=== PATIENT | female | born 1955 | race Caucasian/White ===

== ENCOUNTER 2022-01-04 09:08 | Outpatient (CLI) | payer MEDICARE, OTHER, SELFPAY ==
--- OUTSIDE RECORDS SUMMARY | 2022-01-04 09:11 | XMS_ITS | Encounter Summary ---
:1955 Author Organization [facility] Address [address] [place] [address] Care Team Providers Name Role Phone Unavailable Primary Care Provider Unavailable Reason for Visit Procedure/Equipment (Routine) - Incomplete Specialty Diagnoses / Procedures Referred By Contact Refer red To Contact Diagnoses Capsulitis of metatarsophalangeal (MTP) joint of left foot Moreno Montejo DPM [place] [address] [address] Referral ID Status Reason Start Date Expiration Date Visits V isits Requested Authorized [id number] Incomplete 12/05/2021 03/06/2023 1 1 Encounter Details Date Type Department Care Team Description 12/15/2021 Ancillary [facility] Moreno Montejo Capsulitis of Procedure [address] [facility] ELENA Hernandez metatarsophalangeal (MTP) Drive [address] [address] joint [place] [address] APRIL [place] [phone] [id number] Social History Tobacco Use Types Packs/Day Years Used Date Smoking Tobacco: Never Assessed Sex Assigned at Date Recorded Not on file documented as of this encounter Plan of Treatment Upcoming Encounters Date Type Specialty Care Team Description 01/11/2022 Appointment Podiatry Moreno Montejo DPM [address] [place] [address] (Wo rk) documented as of this encounter Procedures Procedure Name Priority Date/Time Associated Diagnosis Comme nts FL ARTHROGRAM Routine 12/15/2021 7:47 Capsulitis of Results fo r this SECOND METATARSAL AM CDT metatarsophalangeal (MT P) procedure are in LT joint of left foot the resul ts section. documented in this encounter Results FL Arthrogram Second Metatarsal Lt (12/15/2021 7:47 AM CDT) Anatomical Region Laterality Modality Lower Extremity, Foot Radiographic Imagi ng Specimen (Source) Anatomical Collection Method Collection Time Re ceived Time Location / / Volume Laterality 12/15/2021 7:07 AM CDT Impressions 12/15/2021 10:09 AM CDT FINDINGS: The procedure, goals, risks and benefits of the procedure were discussed with the patient, who gave full written and verbal consent to proceed. The location of the procedure was confirmed, the skin initialed, and pause for cause per formed. Using sterile technique, local anesthesia and fluoroscopic guidance a 25 gauge needle was advanced into the second MTP joint from a dorsal approach. Intra articular location of the needle tip was confirmed with the injection of 0.3 mL of Isovue. 1.5 mL of Gadavist injected into the joint space. No evidence of plantar capsular tear of the second MTP. Procedure Note Delvis Ureña MD - 12/15/2021For matting of this note might be different from the original. IMPRESSION FINDINGS: The procedure, goals, risks an d benefits of the procedure were discussed with the patient, who gave full written and verbal consent to proceed. The location of the procedure was confirmed, the skin initialed, and pause for cause performed. Using jered rile technique, local anesthesia and fluoroscopic guidance a 25 gauge needle was advanced into the second MTP joint from a dorsal approach. Intraarticular location of the needle tip was confirmed with the injection of 0.3 mL of Isovue. 1.5 mL of Gadavist injected into the joint space. No evidence of plantar capsular tear of the second MTP. Moreno Montejo DPM RAD FL documented in this encounter Visit Diagnoses Diagnosis Capsulitis of metatarsophalangeal (MTP) joint of left foot documented in this encounter Administered Medications Inactive Administered Medications - up to 3 most recent administrations Medication Order MAR Action Action Date Dose Rate Site gadobutrol (GADAVIST) 1 MMOL/ML Given 12/15/2021 7:08 AM CDT 2 m L injection 2 mL 2 mL, Intracapsular, ONCE, On [place] 12/15/21 at 0730, For 1 dose documented in this encounter
--- OUTSIDE RECORDS SUMMARY | 2022-01-04 09:11 | XMS_ITS | Encounter Summary ---
:1955 Author Organization [facility] Address [address] [place] [address] Care Team Providers Name Role Phone Unavailable Primary Care Provider Unavailable Reason for Visit Procedure/Equipment (Routine) - Incomplete Specialty Diagnoses / Procedures Referred By Contact Refer red To Contact Diagnoses Left foot pain Moreno Montejo DPM Procedures XR Foot Lt 3+ Views [address] [place] [address] Referral ID Status Reason Start Date Expiration Date Visits V isits Requested Authorized [id number] Incomplete 12/05/2021 03/06/2023 1 1 Encounter Details Date Type Department Care Team Description 12/05/2021 Ancillary Procedure [place] Moreno Lay L eft foot pain [place] [address] [facility] Radiology [address] [address] [place] [id number] [phone] Social History Tobacco Use Types Packs/Day Years Used Date Smoking Tobacco: Never Assessed Sex Assigned at Date Recorded Not on file documented as of this encounter Plan of Treatment Upcoming Encounters Date Type Specialty Care Team Description 01/11/2022 Appointment Podiatry Moreno Montejo DPM [address]utiérrez [place], [place] [address] (Wo rk) documented as of this encounter Procedures Procedure Name Priority Date/Time Associated Diagnosis Comme nts XR FOOT LT 3+ VIEWS Routine 12/05/2021 11:06 AM Left foot pain Results for this CDT procedure are i n the results section. documented in this encounter Results XR Foot Lt 3+ Views (12/05/2021 11:06 AM CDT) Anatomical Region Laterality Modality Lower Extremity, Foot Digital Radiograph y Specimen (Source) Anatomical Collection Method Collection Time Re ceived Time Location / / Volume Laterality 12/05/2021 11:02 AM CDT Impressions 12/05/2021 1:06 PM CDT COMPARISON: ??None. FINDINGS: ??There are degenerative mart es at the first MTP joint and within the midfoot. No fracture identified. Bones are mildly osteopenic. Procedure Note Ryan Reyes MD - 12/05/2021Forma tting of this note might be different from the original. IMPRESSION COMPARISON: None. FINDINGS: There are degenerative changes at the first MTP joint and within the midfoot. No fracture identified. Bones are mildly osteopenic. Moreno MARVINM RAD GD documented in this encounter Visit Diagnoses Diagnosis Left foot pain Pain in limb documented in this encounter
--- OUTSIDE RECORDS SUMMARY | 2022-01-04 09:11 | XMS_ITS | Encounter Summary ---
:1955 Author Organization [facility] Address [address] [place] [address] Care Team Providers Name Role Phone Unavailable Primary Care Provider Unavailable Reason for Referral Procedure/Equipment (Routine) - Incomplete Specialty Diagnoses / Procedures Referred By Contact Refer red To Contact Diagnoses Capsulitis of metatarsophalangeal (MTP) joint of left foot Moreno Montejo DPM Procedures [place] [address] [place] [address] Referral ID Status Reason Start Date Expiration Date Visits V isits Requested Authorized [id number] Incomplete 12/05/2021 03/06/2023 1 1 Procedure/Equipment (Routine) - Incomplete Specialty Diagnoses / Procedures Referred By Contact Refer red To Contact Diagnoses Left foot pain Moreno Montejo DPM Procedures XR Foot Lt 3+ Views [address] [place] [address] Referral ID Status Reason Start Date Expiration Date Visits V isits Requested Authorized [id number] Incomplete 12/05/2021 03/06/2023 1 1 Reason for Visit Reason Comments Toe Pain Possible hammertoe 2nd toe l eft foot, noted for last 2 months Encounter Details Date Type Department Care Team Description 12/05/2021 Office Visit Moreno Sloan Left foot p ain (Primary Dx); [place] [address] L, DPM Capsulitis of metatarsophalangeal (MTP) joint of left foot Podiatric Med[facility] [id number] [place], [place] [address], [place] [id number] Social History Tobacco Use Types Packs/Day Years Used Date Smoking Tobacco: Never Assessed Sex Assigned at Date Recorded Not on file documented as of this encounter Progress Notes Moreno Montejo DPM - 12/05/2021 10:45 AM CDT DATE OF VISIT: 12/05/2021 SUBJECTIVE: Sruthi Thompson is a pleasant 65 y.o. female who presents to clinic today for evaluation of pain on the 2nd toe of her left foot. She is wondering if this is a hammertoe. She states that she did start having issues with the 2nd toe approximately two years ago however over the last eight months, she has had discomfort on the plantar base of the 2nd toe in the ball of her foot. She has tried icing, wrapping and massaging. This has not made difference. She does have a history of custom orthotics and is still using these. She believes that these are about 15 years old. These were originally given to her for plantar fasciitis. She does have these with her today. The 1st set of inserts is a graphite insert made by [employer]. The other is a polypropylene insert with a full length top cover. These appear to be in good shape. The age is unknown. Patient's medical care is done outside of our clinic in [facility] Adverse Drug Reactions: Allergies Allergen Reactions Latex Other, see comments Dental gloves lips/mouth swelling noted Contrast [Iodinated Diagnostic Agents] Respiratory Distress Amoxicillin Hives Outpatient Medications Prior to Visit Medication Sig Ascorbic Acid (VITAMIN C OR) Take 1 Tablet by mouth two times a day. Patient takes 1000 mg bid calcium carbonate-vitamin D 600-400 MG-UNIT tablet Take 1 Tablet by mouth two times a day. cetirizine (ZYRTEC) 10 MG tablet Take 10 mg by mouth daily. estradiol (ESTRACE) 0.1 MG/GM vaginal cream Insert 1 g vaginally two times a week. lactobacillus Take 2 Capsules by mouth two times a day with meals. lisinopril (ZESTRIL) 10 MG tablet Take 10 mg by mouth daily. melatonin 5 MG tablet Take 5 mg by mouth daily at bedtime. omega-3 fatty acids (FISH OIL) 1000 MG capsule Take 1 g by mouth daily. Probiotic Product (SUPER PROBIOTIC OR) Take 1 Tablet by mouth daily. progesterone (PROMETRIUM) 100 MG capsule Insert 100 mg vaginally two times a day. Patient takes progesterone in a cream application twice a day raloxifene (EVISTA) 60 MG tablet Take 60 mg by mouth daily. zinc gluconate 50 MG tablet Take 30 mg by mouth daily. Patient takes 30 mg once a day No facility-administered medications prior to visit. Review of Systems: Negative for fever, rash or shortness of breath. Past Medical History: No past medical history on file. There are no problems to display for this patient. No past surgical history on file. 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 No sign of distress is noted during the visit. HEENT: Hearing is intact to spoken word. No evidence of visual impairment that would impact self care or ambulation. Respiratory: Breathing is regular and unlabored while sitting. OBJECTIVE: 65 y.o. year old female who appears their stated age. Alert and oriented and in no acute distress. Walks without a limp and appears to be in general good health. DP and PT pulses are palpable. Hair growth is present on the digits and capillary filling time is less than two seconds. Sensation is intact. There is no weakness with muscle testing of the foot, ankle or lower leg. No pain or restriction with subtalar joint or ankle joint range of motion. In stance loss of longitudinal arch is evident. There are no paresthesias over the tarsal tunnel or with compression of the dorsal nerves. She does point to the 2nd toe on the left foot is the source of her pain. The 2nd toe is slightly larger than the contralateral foot. She does have pain with palpation of the 2nd MTP. She also has somepain with range of motion especially with plantar flexion of the 2nd toe. There is no abnormal alignment and I am unable to palpate any subluxation at the joint. X-rays obtained today and independently reviewed do not show any obvious bony abnormality. There is slight degenerative changes at the 1st MTP. There is no abnormality noted the 2nd MTP. 12/05/2021 Narrative & Impression IMPRESSION COMPARISON: None. FINDINGS: There are degenerative changes at the first MTP joint and within the midfoot. No fracture identified. Bones are mildly osteopenic. ASSESSMENT: ICD-10-CM 1. Left foot pain M79.672 XR Foot Lt 3+ Views 2. Capsulitis of metatarsophalangeal (MTP) joint of left foot M77.52 FL Arthrogram Second MetatarsalLt PLAN: Treatment options were discussed with the patient. I discussed the condition in great detail. I did review some notes in Care everywhere however the last notice from 2015. I discussed with the patient that she has had some discomfort in the last two years but worse over the last eight months. Pain is clearly at the 2nd MTP. X-rays were obtained and reviewed with patient. I discussed with the patient that she does have custom orthotics which appear to be old but are still in good shape. I discussed with the patient that I would like to evaluate the joint and I did set up an arthrogram for the 2nd MTP of the left foot. I will communicate the results through [employer] [place] did provide her with information on how to sign up for [employer]. I will have her stay with the current inserts that she has for now. If the arthrogram is negative then injection into the joint and newinserts may be a consideration. The patient was discharged ambulatory and in stable condition. Orders Placed This Encounter Procedures XR Foot Lt 3+ Views FL Arthrogram Second Metatarsal Lt No orders of the defined types were placed in this encounter. (This note was created using voice recognition software and may contain some manager inpatient errors) documented in this encounter Plan of Treatment Upcoming Encounters Date Type Specialty Care Team Description 01/11/2022 Appointment Podiatry Moreno Montejo DPM [address] [place], [place] [address] (Wo rk) documented as of this encounter Results FL Arthrogram Second Metatarsal [...] second MTP. Moreno Montejo DPM RAD FL XR Foot Lt 3+ Views (12/05/2021 11:06 [...] fracture identified. Bones are mildly osteopenic. Moreno Montejo DPM RAD GD documented in this encounter Visit Diagnoses Diagnosis Left foot pain - Primary Pain in limb Capsulitis of metatarsophalangeal (MTP) joint of left foot Left foot pain Pain in limb Capsulitis of metatarsophalangeal (MTP) joint of left foot documented in this encounter
--- OUTSIDE RECORDS SUMMARY | 2022-01-04 09:11 | XMS_ITS | Clinical Summary ---
:1955 Author Organization [facility] Address [address], [place] [address] Care Team Providers Name Role Phone Unavailable Primary Care Provider Unavailable Source Comments You are receiving this document as you are listed as the primary care provider,follow-up provider, or the patient has been referred to you for consultation.This is in compliance with the Medicare and Medicaid EHR Incentive Program,which states Providers who transition their patient to another setting of careor provider of care or refers their patient to another provider of care shouldprovide summarycare record for each transition of care or referral. [facility] Allergies Active Allergy Reactions Severity Noted Date Comments Amoxicillin Hives High 12/05/2021 Iodinated Diagnostic Respiratory Distress High 12/05/2021 Agents Latex Other, see comments High 12/05/2021 Dental g loves lips/mouth swel ling noted Medications Medication Sig Dispensed Refills Start Date End Date Status lisinopril (ZESTRIL) Take 10 mg by mouth 0 Active 10 MG tablet daily. raloxifene (EVISTA) Take 60 mg by mouth 0 Active 60 MG tablet daily. cetirizine (ZYRTEC) Take 10 mg by mouth 0 Active 10 MG tablet daily. estradiol (ESTRACE) Insert 1 g 0 Active 0.1 MG/GM vaginal vaginally two times cream a week. progesterone Insert 100 mg 0 Act neo (PROMETRIUM) 100 MG vaginally two times capsule a day. Patient takes progesterone in a cream application twice a day Probiotic Product Take 1 Tablet by 0 Active (SUPER PROBIOTIC OR) mouth daily. Ascorbic Acid Take 1 Tablet by 0 Active (VITAMIN C OR) mouth two times a day. Patient takes 1000 mg bid calcium Take 1 Tablet by 0 Act neo carbonate-vitamin D mouth two times a 600-400 MG-UNIT day. tablet lactobacillus Take 2 Capsules by 0 Active mouth two times a day with meals. omega-3 fatty acids Take 1 g by mouth 0 Active (FISH OIL) 1000 MG daily. capsule melatonin 5 MG tablet Take 5 mg by mouth 0 Active daily at bedtime. zinc gluconate 50 MG Take 30 mg by mouth 0 Active tablet daily. Patient takes 30 mg once a day Encounters Date Type Specialty Care Team Description 12/15/2021 Ancillary Interventional Pain Nikia, Capsulit is of Procedure Mgmt Moreno Hernandez, metatarsophalan geal (MTP) DPM joint of left f oot 12/05/2021 Ancillary Radiology PN Nikia, Left foot pain Procedure Moreno Hernandez DPM 12/05/2021 Office Visit Podiatry Nikia, Left foot pain (Primary Dx); Moreno Hernandez, Capsulitis of m etatarsophalangeal (MTP) joint of left foot DPM from Last 3 Months Social History Tobacco Use Types Packs/Day Years Used Date Smoking Tobacco: Never Assessed Sex Assigned at Date Recorded Not on file Plan of Treatment Upcoming Encounters Date Type Specialty Care Team Description 01/11/2022 Appointment Podiatry Moreno Montejo, DPM [address] [place], [place] [address] (Wo rk) Health Maintenance Due Date Last Done Comments Cervical Cancer Screening 1955 Due Colon Cancer Screening Plan 1955 Due Hep C Screening (Preventive 1955 Services) [facility] 1955 [facility] 1955 COVID-19 Vaccine (#1) 06/23/1956 Cholesterol 2001 Pneumococcal 65+ Yrs (1 - 2021 PCV) Influenza (#1) 2022 03/04/2021, 02/13/2020, 03/06/2019, Additional history exists DTaP/Tdap/Td (2 - Tdap) 02/22/2027 02/22/2017, 07/14/2008 Zoster/Shingles Completed 06/04/2020, 02/19/2020, 02/13/2020 HepA Aged Out No longer eligib le based on patient 's age to complete this topic HepB Aged Out No longer eligib le based on patient 's age to complete this topic Hib Aged Out No longer eligib le based on patient 's age to complete this topic IPV (Polio) Aged Out No longer eligib le based on patient 's age to complete this topic MCV4 Aged Out No longer eligib le based on patient 's age to complete this topic Procedures Procedure Name Priority Date/Time Associated Diagnosis Comme nts FL ARTHROGRAM Routine 12/15/2021 7:47 Capsulitis of Results fo r this SECOND METATARSAL AM CDT metatarsophalangeal (MT P) procedure are in LT joint of left foot the resul ts section. XR FOOT LT 3+ Routine 12/05/2021 11:06 Left foot pain Results for this VIEWS AM CDT procedure are i n the results section. from Last 3 Months Results FL Arthrogram Second Metatarsal Lt (12/15/2021 [...] mildly osteopenic. Moreno Montejo DPM RAD GD from Last 3 Months Insurance Payer Benefit Plan / Subscriber ID Effective Phone Address T ype Group Dates MEDICARE MEDICARE [id number] 2021-Pre [phone] Medic are sent [id number] CLAIMS [address] [place] [address] RETIRED RETIRE [id number] 2019-Pre [phone] [employer] sent [phone] [place] [address]
--- OUTSIDE RECORDS SUMMARY | 2022-01-04 09:11 | XMS_ITS ---
:1955 Author Organization [facility] Address [address] [place] [address] Care Team Providers Name Role Phone Shannon Billy Unavailable Unavailable PROBLEMS Type Condition ICD9-CM Code QST44-UW Code Onset Condition SNO MED Code Dates Status Problem Stress N39.3 Active 68072197 incontinence Problem Age-related M80.00XG Active osteoporosis with current pathological fracture with delayed healing, subsequent encounter Problem Urgency N39.41 Active 51920670 incontinence Problem Pelvic floor N81.89 Active weakness Problem Pelvic floor N81.89 Active weakness in female Problem Diffuse cystic N60.12 Active 58634 007 mastopathy of left breast Problem Diffuse cystic N60.11 Active 64809 007 mastopathy of right breast Problem Mixed N39.46 Active 295268532 incontinence Problem Overactive N32.81 Active 532455655 bladder ALLERGIES Substance Reaction Event Type Date Status Latex Unknown Drug Allergy Dec, Active Amoxicillin Unknown Drug Allergy Dec, Active Iopamidol Unknown Drug Allergy Dec, Active Thimerosal Unknown Drug Allergy Dec, Active ENCOUNTERS Encounter Location Date Diagnosis [facility] [address] Mar, [place], [place] [id number] [facility] [address] Feb, [place], [place] [phone] [facility] [address] 07 Feb, 2021 [place], [place] [id number] [facility] [address] Jan, Overact neo bladder N32.81 [place], [place] and Pelvic floo r weakness [address] N81.89 [facility] [address] Jan, 2020 [place] [address] [facility] [address] Jan, 2020 [place] [address] [facility] [address] Jan, [address] cancer screening [place], [place] Z12.31 [id number] [facility] [address] Jan, [address] cancer screening [place], [place] Z12.31 [id number] [facility] [address] Jan, 2020 [place] [phone] [facility] [address] Jan, [place] [address] [facility] [address] Jan, Mixed i ncontinence N39.46 [place], [place] ; Overactive bl adder [address] N32.81 and Pelvi c floor weakness in fema le N81.89 [facility] [address] Jan, 2020 [place], [place] [phone] [facility] [address] Jan, [place] [address] [facility] [address] Jan, Mixed i ncontinence N39.46 [place], [place] ; Overactive bl adder [address] N32.81 and Pelvi c floor weakness in fema le N81.89 [facility] [address] Dec, [place] [address] [facility] [address] Dec, Mixed i ncontinence N39.46 [place] ; Overactive bl adder [address] N32.81 and Pelvi c floor weakness in fema le N81.89 [facility] [address] Dec, [place] [address] [facility] [address] Dec, Mixed i ncontinence N39.46 [place] and Overactive bladder [address] N32.81 [facility] [address] Dec, [place] [address] [facility] [address] Dec, Mixed i ncontinence N39.46 [place] ; Overactive bl adder [address] N32.81 and Pelvi c floor weakness N81.89 [facility] [address] Dec, [place] [address] [facility] [address] Dec, Mixed i ncontinence N39.46 [place] and Overactive bladder [address] N32.81 [facility] [address] Nov, [place] [address] [facility] [address] Nov, [place] [address] [facility] [address] Nov, [place] [phone] [facility] [address] Nov, [place] [address] [facility] [address] Nov, [place] [address] [facility] [address] Nov, [place] [id number] [facility] [address] Nov, [place] [id number] [facility] [address] Nov, [place] [address] [facility] [employer] Nov, [address] [address] [facility] [employer] Nov, [address] [address] [facility] [address] Nov, Overact neo bladder N32.81 [place], [place] and Mixed incon tinence [address] N39.46 [facility] [address] Nov, Encount er for screening [place], [place] for endocrine d isorder [address] Z13.29 and Age-r elated osteoporosis wit h current pathological fra cture with delayed healing, subsequent encou nter M80.00XG [facility] [address] Oct, [place], [place] [phone] [facility] [address] Oct, Cervical sm ear, as part of [place], [place] routine gynecolo gical [address] examination Z01. 419 ; Encounter for sc reening for other metabo lic disorders Z13.22 8 ; Diabetes mellitu s screening Z13.1 ; Encounter for sc reening for lipid disord er Z13.220 ; Encounter for screening for endocrine di sorder Z13.29 and Age-r elated osteoporosis wit h current pathological fra cture, unspecified site , initial encounter for fr acture M80.00XA [facility] [address] Oct, Women's annual routine [place], [place] gynecological e xamination [address] Z01.419 ; Urgenc y of micturition R39. 15 ; Urgency incontin ence N39.41 ; Age-rel ated osteoporosis wit h current pathological fra cture with delayed healing, subsequent encou nter M80.00XG ; Diffu se cystic mastopathy of ri ght breast N60.11 and Diffu se cystic mastopathy of le ft breast N60.12 IMMUNIZATIONS No Known Immunizations SOCIAL HISTORY Qualifiers Date Never Smoker REASON FOR REFERRAL Reason Viverant Referral Organization [facility] Sonali londono Referring Provider First Name Kristy Referring Provider Last Name Elias Referring Provider Specialty Director Long Term Care and gynecolo gist Referring Provider Referring Provider email [email or web address] Referred Provider Specialty Physical Therapist FUNCTIONAL STATUS PLAN OF CARE Activity Details Future Appointment Provider Name:Shannon zuñiga, 2022-01-05 09:45:00 AM, [address] [place], [address], Future Appointment Provider Name:Mammography [facility], 2022-01-26 10:30:00 AM, [address], APRIL Fuentes, [id number], Referral Viverant Pending Test MAMMOGRAM Pending Test MAMMOGRAM Pending Test LIPID PANEL Pending Test COMPREHENSIVE METABOLIC PANE L Pending Test CBC (INCLUDES DIFF/PLT) Pending Test HEMOGLOBIN A1c Pending Test TSH Pending Test VITAMIN D,25-OH,TOTAL,IA VITAL SIGNS Height 64 in 2021-02-03 Weight 159 lbs 2021-02-03 BMI 27.29 kg/m2 2021-02-03 Blood pressure systolic 154 mm Hg 2021-02-03 Blood pressure diastolic 70 mm Hg 2021-02-03 MEDICATIONS Medication Instructions Dosage Frequency Start End Duration Statu s Date Date Oxybutynin Active ZyrTEC Active Acidophilus Active Multivitamin Active Hair, Skin & Active Nails Raloxifene HCl TAKE ONE 30 Active 60 MG TABLET BY MOUTH EVERY DAY Vitamin C Active Borage Active Trospium Orally Once a 1 capsule 24h Nov, day(s) Not-[place] Chloride ER 60 day 1 hour 2020 g MG before a meal on an empty stomach Melatonin Active Estradiol Active Calcium + Active Vitamin D3 Probiotic Active Zinc Active Lisinopril Active Trospium Orally twice 1 tablet Nov, day(s) Not-Michael in Chloride 20 MG daily at bedtime 2020 g on an empty stomach Progesterone Active Vitamin D3 Active Magnesium Active Rhodiola Active Super Greens Active Rosebud 3-6-9 Active Fatty Acids PROCEDURES Procedure Date Ordered Result Body Site SCR MAMMO BI INCL CAD Jan 26, 2021 ELECTRICAL STIMULATION Dec 23, 2020 ANAL/URINARY MUSCLE STUDY Jan 06, 2021 ANAL/URINARY MUSCLE STUDY Jan 20, 2021 ELECTRICAL STIMULATION Dec 30, 2020 ANAL/URINARY MUSCLE STUDY Dec 30, 2020 ELECTRICAL STIMULATION Jan 06, 2021 ANAL/URINARY MUSCLE STUDY Dec 23, 2020 ELECTRICAL STIMULATION Jan 20, 2021 ANAL/URINARY MUSCLE STUDY Dec 16, 2020 ANAL PRESSURE RECORD Jan 06, 2021 ANAL/URINARY MUSCLE STUDY Dec 09, 2020 ANAL PRESSURE RECORD Jan 20, 2021 GENERAL HEALTH PANEL (CBC, TSH, CMP) October 28, 2020 INSERT PESSARY/OTHER DEVICE November 04, 2020 BREAST TOMOSYNTHESIS BI Jan 26, 2021 ELECTRICAL STIMULATION Dec 09, 2020 No Charge Visit November 04, 2020 ELECTRICAL STIMULATION Dec 16, 2020 GLYCATED HEMOGLOBIN TEST October 28, 2020 ANAL PRESSURE RECORD Dec 16, 2020 ANAL PRESSURE RECORD Dec 23, 2020 ANAL PRESSURE RECORD Dec 30, 2020 ASSAY OF VITAMIN D October 28, 2020 BRIEF EMOTIONAL/BEHAV ASSMT October 28, 2020 ANAL PRESSURE RECORD Dec 09, 2020 PHYSICAL PERFORMANCE TEST Dec 23, 2020 PHYSICAL PERFORMANCE TEST Dec 16, 2020 PHYSICAL PERFORMANCE TEST Dec 09, 2020 LIPID PANEL October 28, 2020 PHYSICAL PERFORMANCE TEST Jan 20, 2021 PHYSICAL PERFORMANCE TEST Jan 06, 2021 PHYSICAL PERFORMANCE TEST Dec 30, 2020 RESULTS Name Result Date Reference Range PTH, INTACT AND CALCIUM (Insurance Bill ONLY) CALCIUM 10.2 8.6-10.4 PARATHYROID HORMONE, INTACT 29 14-6 4 LIPID PANEL 2020-10-28 CHOL/HDLC RATIO 3.1 <5.0 CHOLESTEROL, TOTAL 200 <200 HDL CHOLESTEROL 64 > OR = 50 LDL-CHOLESTEROL 113 NON HDL CHOLESTEROL 136 <130 TRIGLYCERIDES 119 <150 COMPREHENSIVE METABOLIC PANEL 2020-10-28 ALBUMIN 4.2 3.6-5.1 ALBUMIN/GLOBULIN RATIO 1.5 1.0-2.5 ALKALINE PHOSPHATASE 53 37-153 ALT 18 6-29 AST 16 10-35 BILIRUBIN, TOTAL 0.5 0.2-1.2 BUN/CREATININE RATIO NOT APPLICABLE 6-22 CALCIUM 10.5 8.6-10.4 CARBON DIOXIDE 27 20-32 CHLORIDE 105 98-110 CREATININE 0.79 0.50-0.99 eGFR 92 > OR = 60 eGFR NON-AFR. MAURITIAN 80 > OR = 60 GLOBULIN 2.8 1.9-3.7 GLUCOSE 86 65-99 POTASSIUM 4.2 3.5-5.3 PROTEIN, TOTAL 7.0 6.1-8.1 SODIUM 142 135-146 UREA NITROGEN (BUN) 18 7-25 CBC (INCLUDES DIFF/PLT) 2020-10-28 ABSOLUTE BASOPHILS 79 0-200 ABSOLUTE EOSINOPHILS 128 15-500 ABSOLUTE LYMPHOCYTES [phone] ABSOLUTE MONOCYTES 458 200-950 ABSOLUTE NEUTROPHILS 3587 [phone] BASOPHILS 1.3 EOSINOPHILS 2.1 HEMATOCRIT 42.9 35.0-45.0 HEMOGLOBIN 14.2 11.7-15.5 LYMPHOCYTES 30.3 MCH 29.5 27.0-33.0 MCHC 33.1 32.0-36.0 MCV 89.0 80.0-100.0 MONOCYTES 7.5 MPV 10.9 7.5-12.5 NEUTROPHILS 58.8 PLATELET COUNT 256 140-400 RDW 12.6 11.0-15.0 RED BLOOD CELL COUNT 4.82 3.80-5.10 WHITE BLOOD CELL COUNT 6.1 3.8-10.8 HEMOGLOBIN A1c 2020-10-28 HEMOGLOBIN A1c 5.1 <5.7 TSH 2020-10-28 TSH 1.03 0.40-4.50 VITAMIN D,25-OH,TOTAL,IA 2020-10-28 VITAMIN D,25-OH,TOTAL,IA 71 30-100 REASON FOR VISIT Insurance Providers [facility] Member Patient Patient Patient Patient Patient Subscriber Subscriber Subscriber Group Insurance Plan Plan Plan Plan ID Relationship Address Phone Name Date of ID Name Date of No Type Insurance Insurance Insurance Coverage to Subscriber Address Phone Name Dates Medicare [address] Medicare self Sruthi [id number] ([address] (InsMarcelo Thompson Bill) [place] Bill) s [place] [id number] HealthPart [address] HealthPart self Sruthi [id number] [place] [id number] MEDICAL (GENERAL) HISTORY Type Description Date Medical History HTN Medical History Osteoporosis Medical History Depression Medical History Gallbladder disease Medical History Bladder infections Medical History Chicken Pox Medical History Endometriosis Surgical History Hysterectomy 1993 Surgical History Sinus surgery 1994 Surgical History Sinus surgery 1995 Surgical History Colon resection 1997 Surgical History Gallbladder removal 1997 Surgical History Breast biopsy 1997 Surgical History Stapedectomy right ear 2000 Surgical History Left hemicolectomy 2010 Surgical History Right wrist carpal tunnel 2011 Surgical History Ovarian cystectomy Left 2015 Surgical History Appendectomy 2014 Surgical History Tonsillectomy adnoidectomy with removal of portion of uvula 2018
--- OUTSIDE RECORDS SUMMARY | 2022-01-04 09:11 | XMS_ITS | Clinical Summary ---
:1955 Author Organization [facility] [place] [address] Care Team Providers Name Role Phone Ravindra Foy MD Primary Care Provider Allergies Active Allergy Reactions Severity Noted Date Comments Amoxicillin Hives 09/19/2012 Diatrizoate Meglumine (Iv Contrast Anaphylaxis High 2014 shock Dye) Latex Edema 09/19/2012 Thimerosal Edema 09/19/2012 Eyes swelled sh ut Medications Medication Sig Dispensed Refills Start Date End Date Status cetirizine (ZYRTEC) 10 Take 1 tablet by 0 09/19/2012 Active mg tablet mouth once daily. clonazePAM (KLONOPIN) Take 1 tablet by 0 09/19/2012 Active 1 mg tablet mouth at bedtime if needed. Patient cuts pill into 05/10 and takes only that lisinopril (PRINIVIL; Take 1 tablet by 30 tablet 1 09/23/2012 Active ZESTRIL) 20 mg tablet mouth once daily. oxybutynin XL Take 1 tablet by 30 tablet 11 05/03/2015 Active (DITROPAN XL) 10 mg CR mouth once daily. tabletIndications: Urinary incontinence, urge oxybutynin XL Take 1 tablet by 90 tablet 3 06/07/2015 Active (DITROPAN XL) 10 mg CR mouth once daily. tabletIndications: Urinary incontinence, urge Active Problems Problem Noted Date Urinary incontinence, urge 05/03/2015 HTN (hypertension) 10/03/2012 Anxiety 10/03/2012 Sleep disorder 10/03/2012 Prediabetes 10/03/2012 Family History Medical History Relation Name Comments Cancer Father Diabetes Father Hypertension Father Heart Disease Maternal Grandfather Cancer Mother Hypertension Mother Relation Name Status Comments Father Maternal Grandfather Mother Social History Tobacco Use Types Packs/Day Years Used Date Never Smoker Smokeless Tobacco: Never Used Alcohol Use Standard Drinks/Week Comments No 0 (1 standard drink = 0.6 oz pure alcoho l) Sex Assigned at Date Recorded Not on file Obstetrics History Last Filed Vital Signs Vital Sign Reading Time Taken Comments Blood Pressure 107/73 06/07/2015 9:28 AM GLUTEN SETTLING TENDER Pulse 65 06/07/2015 9:28 AM GLUTEN SETTLING TENDER Temperature 36.7 ??C (98 ??F) 06/07/2015 9:28 AM GLUTEN SETTLING TENDER Respiratory Rate - - Oxygen Saturation 93% 06/07/2015 9:28 AM GLUTEN SETTLING TENDER Inhaled Oxygen Concentration - - Weight 71.5 kg (157 lb 9.6 oz) 06/07/2015 9:28 AM GLUTEN SETTLING TENDER Height 163.8 cm (5' 4.5) 06/07/2015 9:28 AM GLUTEN SETTLING TENDER Body Mass Index 26.63 06/07/2015 9:28 AM GLUTEN SETTLING TENDER Plan of Treatment Health Maintenance Due Date Last Done Comments COVID-19 vaccine series (#1) 06/23/1956 Tdap 12/22/1967 Depression screening for age 12+ 1968 Hepatitis C screening for age 18-79 1974 Tetanus booster 1976 Pap test for age 21-65 1977 Colonoscopy through age 75 2001 Mammogram for age 45-75 2001 Zoster (shingles) series for age 50+ (1 of 2) 2006 BMI (ht and wt on same day) for age 18+ 06/07/2016 06/07/19 16 Lipids for age 45-75 10/03/2017 10/03/2012 DEXA/DXA scan for age 65+ 2021 Pneumococcal series for age 65+ (1 - PCV) 2021 Influenza for age 65+ 01/05/2022 Results Not on filefrom Last 3 Months Insurance Payer Benefit Plan / Subscriber ID Effective Dates Phone Addre ss Type Group [employer] [id number] 2015-Present [address] [place] [address] Care Teams Bottle Label Inspector Relationship Specialty Start Date End Date Ravindra Foy MD PCP - General 05/03/151999 [place] [address]
[2022-01-04 12:43] LABS: Albumin* 4.2 g/dL (3.3-5.0); Chloride* 102 mmol/L (96-114)
[2022-01-04 12:44] LABS: Sodium* 138 mmol/L (135-149)
[2022-01-04 12:46] LABS: Aspartate Amino Transferase* 30 U/L (12-35); Bilirubin Total* 0.6 mg/dL (0.1-1.5); Carbon Dioxide* 29 mmol/L (20-32); Cholesterol* 234 mg/dL (90-199); Creatinine* 0.7 mg/dL (0.5-1.5); Estimated Glomerular Filt Rate 96 ml/min; Total Protein* 7.1 g/dL (6.0-8.3)
[2022-01-04 12:47] LABS: Alanine Aminotransferase* 39 U/L (4-35); Alkaline Phosphatase* 84 U/L (40-150); Blood Urea Nitrogen* 18 mg/dL (7-30); Calcium* 9.8 mg/dL (8.4-10.6); Glucose* 96 mg/dL (60-115); HDL Cholesterol* 72 mg/dL (>=50); LDL Cholesterol Calculated 136 mg/dL (<100); Triglycerides* 129 mg/dL (40-149)
[2022-01-04 13:37] LABS: Vitamin B12* 936 pg/mL (243-894)
== END 2022-01-04 09:09 | disposition home or self-care (01) ==
PROVIDERS: PCP Internal Medicine; Visit Provider Internal Medicine
DX: Z00.00 Encounter for general adult medical examination without abnormal findings (principal); I10 Essential (primary) hypertension; M81.0 Age-related osteoporosis without current pathological fracture
CPT/HCPCS: 80053; 80061; 82607; 84443

== ENCOUNTER 2022-01-19 12:51 | Outpatient (CLI) | payer MEDICARE, OTHER, SELFPAY ==
--- OUTSIDE RECORDS SUMMARY | 2022-01-19 12:53 | XMS_ITS | Clinical Summary ---
:1955 Author Organization [facility] [place] [address] Care Team Providers Name Role Phone Ravindra [...] Comments Blood Pressure 107/73 06/07/2015 9:28 AM SUBSTATION DESIGNER Pulse 65 06/07/2015 9:28 AM SUBSTATION DESIGNER Temperature 36.7 ??C (98 ??F) 06/07/2015 9:28 AM SUBSTATION DESIGNER Respiratory Rate - - Oxygen Saturation 93% 06/07/2015 9:28 AM SUBSTATION DESIGNER Inhaled Oxygen Concentration - - Weight 71.5 kg (157 lb 9.6 oz) 06/07/2015 9:28 AM SUBSTATION DESIGNER Height 163.8 cm (5' 4.5) 06/07/2015 9:28 AM SUBSTATION DESIGNER Body Mass Index 26.63 06/07/2015 9:28 AM SUBSTATION DESIGNER Plan of Treatment Health Maintenance Due Date [...] Phone Addre ss Type Group [employer] [id number] 2015-Present [address] [place] [address] Care Teams Financial Coordinator Relationship Specialty Start Date End Date Ravindra Foy MD PCP - General 05/03/151999 [place] [address]
--- OUTSIDE RECORDS SUMMARY | 2022-01-19 12:53 | XMS_ITS | Encounter Summary ---
:1955 [address] [facility] Address [address] [place] [address] Care Team Providers Name Role Phone Unavailable Primary Care Provider Unavailable Reason for Visit Reason Comments Follow-up Foot Pain left Encounter Details Date Type Department Care Team Description 01/11/2022 Office Visit Moreno Sloan Left foot p ain (Primary Dx); [place] [address] L, DPM Capsulitis of metatarsophalangeal (MTP) joint of left foot; [facility] [address] [address] Hammertoe of second toe of l eft foot [address] [place] [address] [phone] Social History Tobacco Use Types Packs/Day Years Used Date Smoking Tobacco: Never Tobacco Cessation: Counseling Given: Not Answered Sex Assigned at Date Recorded Not on file documented as of this encounter Progress Notes Moreno Montejo DPM - 01/11/2022 11:15 AM CDT DATE OF VISIT: 01/11/2022 SUBJECTIVE: Patient presents for follow-up. Her initial clinic visit with me was December 05, 2021. She did complain of left foot pain. X-rays were obtained. I did order an arthrogram, of the 2nd MTP of her left foot. I did communicate the results through [employer]. I did inform her that this was negative and did ask her to come in for an injection. She states that her pain is better. Her pain is a level 1/10. The patient also indicates that she did take Advil two every 4 hours for three weeks. She did get new shoes. She is also concerned that the 2nd toe is different in position and she has been trying to stretch this but also finds that this may be uncomfortable if it contacts her shoe and pushes this down. She also believes that the 2nd and 3rd toes may be . On her initial visit, she stated that she did start having issues with the 2nd toe approximately twoyears ago however but over the last eight months, she has had discomfort on the plantar base of the 2nd toe in the ball of her foot. She has tried icing, wrapping and massaging. This hadcnot made difference. She does have a history of custom orthotics and is still using these. She believes that these are about 15 years old. These were originally given to her for plantar fasciitis. I did evaluate these on her initial visit. The onet set of inserts is a graphite insert made by [employer]. The other is a polypropylene insert with a full length top cover. These appear to be in good shape. The age is unknown. Patient's medical care is done outside of our clinic in [facility] Adverse Drug Reactions: Allergies Allergen Reactions [...] surgical history on file. 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 Hair [...] than the contralateral foot. She does have some pain with palpation of the 2nd MTP. She does nothave any discomfort with range of motion of the toe today but on her initial visit, she did have some pain with range of motion especially with plantar flexion of the 2nd toe. There is no abnormal alignment and I am unable to palpate any subluxation at the joint. I did focus on the 2nd intermetatarsalspace and did not produce any discomfort in this area. She does have a very slight contraction noted to the 2nd toe. There is no hyperkeratotic area or abrasion on the dorsal PIPJ. X-rays obtained on her initial visit did not show any obvious bony abnormality. There is slight degenerative changes at the 1st MTP. There is no abnormality noted the 2nd MTP. 12/05/2021 Narrative & Impression IMPRESSION COMPARISON: None. FINDINGS: There are degenerative changes at the first MTP joint and within the midfoot. No fracture identified. Bones are mildly osteopenic. 12/15/2021 Narrative & Impression IMPRESSION FINDINGS: The procedure, goals, risks and benefits of the procedure were discussed with the patient,who gave full written and verbal consent to proceed. The location of the procedure was confirmed, the skin initialed, and pause for cause performed. Using sterile technique, local anesthesia and fluoroscopic guidance a 25 gauge needle was advanced into the second MTP joint from a dorsal approach. Intraarticular location of the needle tip was confirmed with the injection of 0.3 mL of Isovue. 1.5 mL ofGadavist injected into the joint space. No evidence of plantar capsular tear of the second MTP. ASSESSMENT: ICD-10-CM 1. Left foot pain M79.672 2. Capsulitis of metatarsophalangeal (MTP) joint of left foot M77.52 3. Hammertoe of second toe of left foot M20.42 PLAN: Treatment options were discussed with the patient. I discussed the condition in great detail. Patient's discomfort is improved and her pain is a level 1/10. I did review the arthrogram with her. Her pain is now level 1/10. She does not feel that she is symptomatic enough to warrant an injection.She has taken ibuprofen for time frame of three weeks. I did suggest consideration of a Medrol Dosepak. I will have her wait until after her bone density study to start taking the medication. This should not be an issue but the exam is next week so I will just wait. I discussed with the patient that Joseph not see evidence of a neuroma. She does have custom orthotics. I discussed with the patient that this swelling of the joint can cause a slight separation. She does not have any significant contraction to the toe but there is a slight contraction. I informed her that I do not perform range of motionexercises on lesser toes. Too much of this can actually traumatized the toe. The patient can try a hammertoe stabilizer which may take some pressure off the toe. I do not see any significant sagittal plane contraction that would cause her shoe to head on the toe putting more back pressure on the MTP. If the patient's pain persists, I would like to consider an injection. This would be into the 2nd MTP.. The patient was discharged ambulatory and in stable condition. Moderate complexity with review of arthrogram and prescription No orders of the defined types were placed in this encounter. Orders Placed This Encounter Medications methylPREDNISolone (MEDROL 21 TABLET DOSEPACK) 4 MG tablet Sig: Take as directed on package Dispense: 21 Tablet Refill: 0 (This note was created using voice recognition software and may contain some shadowgraph operator errors) documented in this encounter Plan of Treatment Not on filedocumented as of this encounter Visit Diagnoses Diagnosis Left foot pain - Primary Pain in limb Capsulitis of metatarsophalangeal (MTP) joint of left foot Hammertoe of second toe of left foot documented in this encounter
--- OUTSIDE RECORDS SUMMARY | 2022-01-19 12:53 | XMS_ITS | Encounter Summary ---
:1955 Author Organization [facility] Address [address] [place] [address] Care Team Providers Name Role Phone Unavailable Primary Care Provider Unavailable Reason for Visit Procedure/Equipment (Routine) - Incomplete Specialty Diagnoses / Procedures Referred By Contact Refer red To Contact Diagnoses Left foot pain Moreno Montejo, ELNEA Procedures XR Foot Lt 3+ Views [id number] [facility] [place] [address] Referral ID Status Reason Start Date Expiration Date Visits V isits Requested Authorized [id number] Incomplete 12/05/2021 03/06/2023 1 1 Encounter Details Date Type Department Care Team Description 12/05/2021 Ancillary Procedure [place] Moreno Lay L eft foot pain [place] [address] DPM Radiology [address] [address] [address] [place] [phone] Social History Tobacco Use Types Packs/Day Years Used Date Smoking Tobacco: Never Assessed Sex Assigned at Date Recorded Not on file documented as of this encounter Plan of Treatment Not on filedocumented as of this encounter Procedures Procedure Name [...]
--- OUTSIDE RECORDS SUMMARY | 2022-01-19 12:53 | XMS_ITS ---
:1955 Author Organization [facility] Address [address] [place] [address] Care Team Providers Name Role Phone Shannon Billy Unavailable Unavailable PROBLEMS ALLERGIES ENCOUNTERS IMMUNIZATIONS No Known Immunizations SOCIAL HISTORY REASON FOR REFERRAL FUNCTIONAL STATUS PLAN OF CARE VITAL SIGNS MEDICATIONS PROCEDURES RESULTS REASON FOR VISIT Insurance Providers MEDICAL (GENERAL) HISTORY
--- OUTSIDE RECORDS SUMMARY | 2022-01-19 12:53 | XMS_ITS | Encounter Summary ---
:1955 Author Organization [facility] Address [address] [place] [address] Care Team Providers Name Role Phone Unavailable Primary Care Provider Unavailable Reason for Referral Procedure/Equipment (Routine) - Incomplete Specialty Diagnoses / Procedures Referred By Contact Refer red To Contact Diagnoses Capsulitis of metatarsophalangeal (MTP) joint of left foot Moreno Montejo DPM Procedures [place] [address] [place] [address] Referral ID Status Reason Start Date Expiration Date Visits V isits Requested Authorized [id number] Incomplete 12/05/2021 03/06/2023 1 1 Procedure/Equipment (Routine) - Incomplete Specialty Diagnoses / Procedures Referred By Contact Refer red To Contact Diagnoses Left foot pain Moreno Montejo DPM Procedures XR Foot Lt 3+ Views [id number] [place] [address] Referral ID Status Reason Start Date Expiration Date Visits V isits Requested Authorized [id number] Incomplete 12/05/2021 03/06/2023 1 1 Reason for Visit Reason Comments Toe Pain Possible hammertoe 2nd toe l eft foot, noted for last 2 months Encounter Details Date Type Department Care Team Description 12/05/2021 Office Visit Moreno Sloan Left foot p ain (Primary Dx); [place] [address] L, DPM Capsulitis of metatarsophalangeal (MTP) joint of left foot Podiatric MedSurg [id number] [place], [place] [address]G[place]nie [place]za [place], [place] [phone] Social History Tobacco Use Types Packs/Day [...] done outside of our clinic in [facility] Adverse Drug Reactions: Allergies Allergen Reactions Latex [...] surgical history on file. 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 I will communicate the results through [employer] Sienna did provide her with information on how to sign up for [employer]. I will have her stay with the [...] voice recognition software and may contain some outboard technician errors) documented in this encounter Plan of Treatment Not on filedocumented as of this encounter Results FL Arthrogram [...]
--- OUTSIDE RECORDS SUMMARY | 2022-01-19 12:53 | XMS_ITS | Clinical Summary ---
:1955 Author Organization [facility] Address [address] [place] [address] Care Team Providers Name Role Phone Unavailable [...] for each transition of care or referral. [facility] Allergies Active Allergy Reactions Severity Noted Date Comments Amoxicillin Hives High 12/05/2021 Iodinated Diagnostic Respiratory Distress High 12/05/2021 Agents Latex Other, see comments High 12/05/2021 Dental g loves lips/mouth swel isabela noted Medications Medication Sig Dispensed Refills Start Date End Date Status lisinopril (ZESTRIL) 10 Take 10 mg by 0 Active MG tablet mouth daily. raloxifene (EVISTA) 60 Take 60 mg by 0 Active MG tablet mouth daily. cetirizine (ZYRTEC) 10 Take 10 mg by 0 Active MG tablet mouth daily. estradiol (ESTRACE) 0.1 Insert 1 g 0 Active MG/GM vaginal cream vaginally two times a week. progesterone Insert 100 mg 0 Act neo (PROMETRIUM) 100 MG vaginally two capsule times a day. Patient takes progesterone in a cream application twice a day Probiotic Product (SUPER Take 1 Tablet by 0 Active PROBIOTIC OR) mouth daily. Ascorbic Acid (VITAMIN C Take 1 Tablet by 0 Active OR) mouth two times a day. Patient takes 1000 mg bid calcium Take 1 Tablet by 0 Act neo carbonate-vitamin D mouth two times a 600-400 MG-UNIT tablet day. lactobacillus Take 2 Capsules 0 Active by mouth two times a day with meals. omega-3 fatty acids Take 1 g by mouth 0 Active (FISH OIL) 1000 MG daily. capsule melatonin 5 MG tablet Take 5 mg by 0 Active mouth daily at bedtime. zinc gluconate 50 MG Take 30 mg by 0 Active tablet mouth daily. Patient takes 30 mg once a day methylPREDNISolone Take as directed 21 Tablet 0 01/11/2022 Active (MEDROL 21 TABLET on package DOSEPACK) 4 MG tablet Encounters Date Type Specialty Care Team Description 01/11/2022 Office Visit Podiatry Nikia, Left foot pain (Primary Dx); Moreno Hernandez, Capsulitis of m etatarsophalangeal (MTP) joint of left foot; DPM Hammertoe of se cond toe of left foot 12/15/2021 Ancillary Interventional Pain Nikia, Capsulit is of Procedure Mgmt Moreno Hernandez, metatarsophalan geal (MTP) DPM joint of left f oot 12/05/2021 Ancillary Radiology PN Nikia, Left foot pain Procedure Moreno Hernandez, DPM 12/05/2021 Office Visit Podiatry Nikia, Left foot pain (Primary Dx); Moreno Hernandez, Capsulitis of m etatarsophalangeal (MTP) joint of left foot DPM from Last 3 Months Social History Tobacco Use Types Packs/Day Years Used Date Smoking Tobacco: Never Tobacco Cessation: Counseling Given: Not Answered Sex Assigned at Date Recorded Not on file Plan of Treatment Health Maintenance Due Date Last Done Comments Cervical Cancer Screening 1955 Due Colon Cancer Screening Plan 1955 Due Hep C Screening (Preventive 1955 Services) Medicare Welcome Visit 1955 Mammogram 1955 COVID-19 Vaccine (#1) 06/23/1956 Cholesterol 2001 Dexa 2021 Influenza (#1) 2022 03/04/2021, 02/13/2020, 03/06/2019, Additional history exists DTaP/Tdap/Td (2 - Tdap) 02/22/2027 02/22/2017, 07/14/2008 Zoster/Shingles Completed 06/04/2020, 02/19/2020, 02/13/2020 Pneumococcal 65+ Yrs Completed 01/04/2022 HepA Aged Out No longer eligib le [...] Address T ype Group Dates MEDICARE MEDICARE [id number] 2021-Prese [phone] ATTN IESHA MS Medicare nt [address] [place] [address] [employer] [facility] [id number] 2022-Prese [phone] [address] [employer] SUPPLEMENTAL nt [phone] [place] [address]
--- NOTE | 2022-01-19 13:00 | CRLHL7_ITS ---
For Patients: As a result of the Century Cures Act, medical imaging exams and procedure reports are released immediately into your electronic medical record. You may view this report before your referring provider. If you have questions, please contact your health care provider. DXA BONE MINERAL DENSITY STUDY Current height (in): 63 Weight (lb): 160.0 Menopause age: 35 Ethnicity: White 1. Have you had a previous hip or vertebral fracture? No. 2. Have you had any fractures during your adult life which did not result from significant trauma (e.g., auto accident)? No. 3. Did either of your parents have a hip fracture? No. 4. Do you smoke? No. 5. Have you ever taken Glucocorticoids? No. 6. Do you have rheumatoid arthritis? No. 7. Do you have secondary osteoporosis? No. 8. Do you drink 3 or more alcoholic drinks per day? No. 9. Are you being treated for osteoporosis? Yes. 10. Have you ever taken any of the following medications: Actonel, Evista, Fosamax, Miacalcin, Reclast, Boniva, Forteo, HRT (i.e. estrogen/hormone therapy), Protelos, Prolia, Vitamin D, Calcium, other ??? please specify. ANSWER: Yes, Evista. 11. Do you have any of the following medical conditions: Anorexia or bulimia, asthma or emphysema, end stage renal disease, hyperparathyroidism, any seizure disorders, cancer, inflammatory bowel diseases, hysterectomy, other ??? please specify. ANSWER: Yes, Hysterectomy. 12. What was your maximum height (inches)? 64 13. Do you perform weight bearing exercise regularly? Yes. 14. Do you regularly consume dairy products? No. 15. Do you drink caffeinated beverages? Yes. 16. At what age did your period start? 12 17. Are you premenopausal? No. 18. How many full term pregnancies have you had? 2 19. Have you ever missed your period for more than 6 months in a row (not including or menopause)? No. TECHNIQUE: Bone mineral density study was performed using the [employer]. FINDINGS: The results of the study expressed as bone mineral density (BMD) are as follows: Lumbar spine L1 to L4: BMD: 0.843 g/cm2. T-score: -1.9. Z-score: -0.1. Neck Left: BMD: 0.538 g/cm2. T-score: -2.8. Z-score: -1.3. Right: BMD: 0.590 g/cm2. T-score: -2.3. Z-score: -0.8. Total Left: BMD: 0.783 g/cm2. T-score: -1.3. Z-score: -0.1. Right: BMD: 0.785 g/cm2. T-score: -1.3. Z-score: -0.1. IMPRESSION: Osteoporosis. *Comparison exams done prior to 10/2019 were performed on different unit, [employer]. COMPARISON: Compared with scan of 02/20/2019, the bone mineral density has decreased by 2.0 percent at the spine. Raffi Valle M.D. Diagnostic Radiologist [email or web address] CHACE/maximino PT/Dictated by: Raffi Valle MD @ 01/19/2022 2:43:00 PM (Electronically Signed)
== END 2022-01-19 12:52 | disposition home or self-care (01) ==
LOC: RAD 12:51
PROVIDERS: PCP Internal Medicine; Visit Provider Internal Medicine
DX: Z90.710 Acquired absence of both cervix and uterus (principal); M81.0 Age-related osteoporosis without current pathological fracture
CPT/HCPCS: 77080

== ENCOUNTER 2024-01-23 13:16 | Outpatient (CLI) | payer MEDICARE, SELFPAY ==
--- NOTE | 2024-01-23 13:30 | CRLHL7_ITS ---
For Patients: As a result of the Century Cures Act, medical imaging exams and procedure reports are released immediately into your electronic medical record. You may view this report before your referring provider. If you have questions, please contact your health care provider. DXA BONE MINERAL DENSITY STUDY Reason for exam: Asymptomatic menopausal state. Current height (in): 63. Weight (lb): 160. Menopause age: 35. Ethnicity: White. 1. Have you had a previous hip or vertebral fracture? No. 2. Have you had any fractures during your adult life which did not result from significant trauma (e.g., auto accident)? No. 3. Did either of your parents have a hip fracture? No. 4. Do you smoke? No. 5. Have you ever taken Glucocorticoids? No. 6. Do you have rheumatoid arthritis? No. 7. Do you have secondary osteoporosis? No. 8. Do you drink 3 or more alcoholic drinks per day? No. 9. Are you being treated for osteoporosis? Yes. 10. Have you ever taken any of the following medications: Actonel, Evista, Fosamax, Miacalcin, Reclast, Boniva, Forteo, HRT (i.e., estrogen/hormone therapy), Protelos, Prolia, Vitamin D, Calcium, other ??? please specify. ANSWER: Yes, Evista (i.e., raloxifene) and Fosamax (i.e., alendronate). 11. Do you have any of the following medical conditions: Anorexia or bulimia, asthma or emphysema, end stage renal disease, hyperparathyroidism, any seizure disorders, cancer, inflammatory bowel diseases, hysterectomy, other ??? please specify. ANSWER: Yes, hysterectomy. 12. What was your maximum height (inches)? 64. 13. Do you perform weight bearing exercise regularly? Yes. 14. Do you regularly consume dairy products? Yes. 15. Do you drink caffeinated beverages? No. 16. At what age did your period start? 12. 17. Are you premenopausal? No. 18. How many full-term pregnancies have you had? 2. 19. Have you ever missed your period for more than 6 months in a row (not including or menopause)? No. TECHNIQUE: Bone mineral density study was performed using the [employer]. FINDINGS: The results of the study expressed as bone mineral density (BMD) are as follows: Lumbar spine L1 to L4: BMD: 0.873 g/cm2. T-score: -1.6. Z-score: 0.3 Neck Left: BMD: 0.594 g/cm2. T-score: -2.3. Z-score: -0.7 Right: BMD: 0.667 g/cm2. T-score: -1.6. Z-score: 0.0 Total Left: BMD: 0.809 g/cm2. T-score: -1.1. Z-score: 0.3 Right: BMD: 0.827 g/cm2. T-score: -0.9. Z-score: 0.4 IMPRESSION: Osteopenia. *Comparison exams done prior to 10/2019 were performed on different unit, [employer] COMPARISON: Compared with scan of 01/19/2022, the bone mineral density has increased by 3.6 percent at the spine and increased by 4.4 percent at the hip. Compared with scan of 02/20/2019, the bone mineral density has decreased by 2.0 percent at the spine. Raffi Valle M.D. Diagnostic Radiologist [email or web address] CHACE/meenu corrigan/Dictated by: Raffi Valle MD @ 01/24/2024 8:25:00 AM (Electronically Signed)
== END 2024-01-23 13:17 | disposition home or self-care (01) ==
LOC: RAD 13:18
PROVIDERS: PCP Pediatrics; Visit Provider Pediatrics
DX: Z78.0 Asymptomatic menopausal state (principal); M85.89 Other specified disorders of bone density and structure, multiple sites
CPT/HCPCS: 77080